=== PATIENT | male | born 1980 | race Caucasian/White ===

== ENCOUNTER 2023-01-07 06:52 | Day surgery (SDC) | payer BC ==
[2023-01-03 13:37] VITALS: BMI 23.0
[2023-01-07] MEDS ORDERED: PROPOFOL 200 MG/20 ML VIAL ONE (08:56)
== END 2023-01-07 10:12 | disposition home or self-care (01) ==
LOC: SDC 06:52
PROVIDERS: ATTEND Internal Medicine
PROC: 3E0H8GC Introduction of Other Therapeutic Substance into Lower GI, Via Natural or Artificial Opening Endoscopic (ICD-10-PCS; principal; 2023-01-07)
DX: A04.71 Enterocolitis due to Clostridium difficile, recurrent (principal); K50.90 Crohn's disease, unspecified, without complications; K63.3 Ulcer of intestine; K64.8 Other hemorrhoids; K64.4 Residual hemorrhoidal skin tags; Z87.891 Personal history of nicotine dependence; Z79.2 Long term (current) use of antibiotics; Z79.899 Other long term (current) drug therapy
CPT/HCPCS: J2704

== ENCOUNTER 2023-06-06 09:07 | Outpatient (CLI) | payer BC | END 2023-06-06 09:08 | disposition home or self-care (01) | LOC: RAD 09:07 | PROVIDERS: ATTEND Physician Assistant Medical | DX: K50.10 Crohn's disease of large intestine without complications (principal) ==

== ENCOUNTER 2025-09-23 15:01 | Outpatient (CLI) | payer BC | END 2025-09-23 15:02 | disposition home or self-care (01) | LOC: BICMRI 15:01 → SCSMRI 15:02 | PROVIDERS: ATTEND Nurse Practitioner Family | DX: M51.362 Other intervertebral disc degeneration, lumbar region with discogenic back pain and lower extremity pain (principal); M48.061 Spinal stenosis, lumbar region without neurogenic claudication; G95.19 Other vascular myelopathies | CPT/HCPCS: 72148 ==